=== PATIENT | male | born 1990 | race Caucasian/White ===

== ENCOUNTER 2022-02-23 04:25 | Emergency (ER) | payer BC, MEDICAID ==
[2022-02-23] MEDS ORDERED: Propofol 200 MG/20 ML SDV ONE (06:05)
[2022-02-23] MEDS ORDERED: Sodium Chloride 0.9% 1,000 ML IV SCH (07:00)
== END 2022-02-23 07:15 | disposition home or self-care (01) ==
LOC: JP.ED 04:25
DX: K42.0 Umbilical hernia with obstruction, without gangrene (principal); Z86.16 Personal history of COVID-19
CPT/HCPCS: 36415; 74176; 80048; 83605; 85025; 96360; 99284; J2704; J7030